=== PATIENT | male | born 1945 | race Caucasian/White ===

== ENCOUNTER 2018-04-23 17:30 | Emergency (ER) | payer MEDICARE, OTHER ==
[2018-04-23] MEDS ORDERED: Warfarin 5 MG Tab ONE (17:44)
[2018-04-23] MEDS ORDERED: Warfarin 5 MG Tab PO ONE (17:50)
--- NOTE | 2018-04-23 18:02 | EDM.PDOC ---
ED HPI GENERAL MEDICAL PROBLEM - General Chief Complaint: General Stated Complaint: out of warfarin Rx and from out of town Time Seen by Provider: 04/23/18 17:40 Source of Information: Reports: Patient, RN History Limitations: Reports: No Limitations - History of Present Illness INITIAL COMMENTS - FREE TEXT/NARRATIVE: 72 yr male presents to ER stating her doesn't have any of his Coumadin and is in town from [place] and the pharmacy is closed for the evening. States he takes this for atrial fibrillation. States his INR has been good and was checked last month. States he takes Coumadin 5 mg PO daily. - Related Data Allergies Allergy/AdvReac Type Severity Reaction Status Date / Time No Known Allergies Allergy Verified 04/23/18 17:58 ED ROS GENERAL - Review of Systems Review Of Systems: See Below Constitutional: Reports: No Symptoms HEENT: Reports: No Symptoms Respiratory: Reports: Cough. Denies: Shortness of Breath, Wheezing Cardiovascular: Reports: Other (atrial fibrillation). Denies: Chest Pain, Edema GI/Abdominal: Reports: No Symptoms Neurological: Reports: No Symptoms ED EXAM, GENERAL - Physical Exam Exam: See Below Exam Limited By: No Limitations General Appearance: Alert, WD/WN, No Apparent Distress Ears: Hearing Loss Nose: Normal Inspection. No: Nasal Tenderness Throat/Mouth: Normal Inspection, Normal Voice, No Airway Compromise Head: Atraumatic, Normocephalic Neck: Supple, Non-Tender Respiratory/Chest: No Respiratory Distress, Lungs Clear, Normal Breath Sounds, Other (dry hacky cough noted) Cardiovascular: No Edema, Irregularly Irregular Back Exam: Normal Inspection Extremities: Normal Inspection, No Pedal Edema Neurological: Alert, Oriented, Normal Cognition Psychiatric: Normal Affect, Normal Mood Skin Exam: Warm, Dry, Normal Color Course - Orders/Labs/Meds Meds: Medications Discontinued Medications Generic Name Dose Route Start Last Admin Trade Name Freq PRN Reason Stop Dose Admin Warfarin Sodium Confirm 04/23/18 17:44 Coumadin Administered 04/23/18 17:45 Dose 5 mg .ROUTE .STK-MED ONE - Re-Assessments/Exams Free Text/Narrative Re-Assessment/Exam: 04/23/18 18:01 Coumadin 5mg PO given in ER and Rx for Coumadin 5mg PO daily and 5 tablets dispensed. Pt will refill Rx upon return to home next week. Departure - Departure Time of Disposition: 17:55 Disposition: Home, Self-Care 01 Condition: Good Clinical Impression: Arrhythmia, Anticoagulant long-term use - Discharge Information *PRESCRIPTION DRUG MONITORING PROGRAM REVIEWED*: Not Applicable *COPY OF PRESCRIPTION DRUG MONITORING REPORT IN PATIENT EMA: Not Applicable ( Return to PCP next week for refill of Coumadin) Referrals: PCP,None [Primary Care Provider] - Forms: ED Department Discharge
== END 2018-04-23 17:52 | disposition home or self-care (01) ==
LOC: LB.ED 17:30
DX: I49.9 Cardiac arrhythmia, unspecified (principal); Z79.01 Long term (current) use of anticoagulants
CPT/HCPCS: 99281; 99283; A9270-GY